=== PATIENT | female | born 1985 | race Caucasian/White ===

== ENCOUNTER 2019-09-26 00:31 | Emergency (ER) | payer MEDICAID ==
[~2019-09-26] VITALS: Ht 167.6 cm; Wt 59.0 kg
[2019-09-26 00:34] VITALS: BP 112/71
--- NOTE | 2019-09-26 00:54 | NUR ---
PT WAS SEEN AT ON WEDNESDAY, DIAGNOSED WITH A BARTHOLIN'S CYST, AND PRESCRIBED AMOXICILLIN. WAS TOLD TO COME INTO ER IF THE CYST DIDN'T START TO IMPROVE. PT HAS BEEN DISSOLVING VITAMIN C IN WATER AND "ABSORBING IT RECTALLY" TO TRY TO IMPROVE HER SYMPTOMS.
[2019-09-26] MEDS ORDERED: LIDOCAINE-MPF 2% ,5ML ONE (00:57)
[2019-09-26] MEDS ORDERED: LIDOCAINE-MPF 2% ,5ML SQ ONE (01:00)
--- NOTE | 2019-09-26 01:59 | NUR ---
Pt report from Julisa mackey. This rn to assume care of pt. Pa at bedside to evaluate pt.
--- NOTE | 2019-09-26 02:10 | NUR ---
Pa at bedside for I&D.
== END 2019-09-26 02:42 | disposition home or self-care (01) ==
LOC: ED 01:15
DX: N75.1 Abscess of Bartholin's gland (principal)
CPT/HCPCS: 56420; 99284

== ENCOUNTER 2019-12-04 06:19 | Emergency (ER) | payer MEDICAID ==
[~2019-12-04] VITALS: Ht 167.6 cm; Wt 57.9 kg
[2019-12-04 07:13] VITALS: BP 101/65
[2019-12-04 07:35] LABS: MICROSCOPIC INDICATED
== END 2019-12-04 08:07 | disposition home or self-care (01) ==
LOC: ED 06:53
DX: N30.01 Acute cystitis with hematuria (principal); R11.0 Nausea; Z87.891 Personal history of nicotine dependence
CPT/HCPCS: 81001; 81025; 87086; 99283